=== PATIENT | female | born 1960 | race Caucasian/White ===

== ENCOUNTER → 2017-05-04 | Outpatient (CLI) | payer BC | LOC: RAD 10:52 | DX: Z12.31 Encounter for screening mammogram for malignant neoplasm of breast (principal) ==

== ENCOUNTER → 2017-11-12 | Outpatient (CLI) | payer OTHER | LOC: CAT 14:46 | DX: Z13.6 Encounter for screening for cardiovascular disorders (principal) ==

== ENCOUNTER → 2018-07-01 | Outpatient (CLI) | payer BC, OTHER ==
[~2018-07-01] MED LIST: ACYCLOVIR 400400 MG PO; ASPIR 8181 MG PO; ATENOLOL 50MG T50 M1 PO; LIPITOR10 MG PO; SERTRALINE HCL100 MG PO; SYNTHROID50 MCG PO; WELLBUTRIN SR150 MG PO; XANAX 0.5 MG0.5 MG PO; ZOLPIDEM TARTRA10 MG PO
== END ==
LOC: ULTRA 09:53
DX: N19 Unspecified kidney failure (principal)

== ENCOUNTER → 2018-07-11 | Outpatient (CLI) | payer BC, OTHER | LOC: RAD 14:10 | DX: Z12.31 Encounter for screening mammogram for malignant neoplasm of breast (principal) ==

== ENCOUNTER → 2020-04-25 | Outpatient (CLI) | payer BC | LOC: LAB 13:34 | PROVIDERS: ATTEND Nurse Practitioner | DX: Z20.828 Contact with and (suspected) exposure to other viral communicable diseases (principal) ==

== ENCOUNTER → 2020-05-07 | Outpatient (CLI) | payer BC | LOC: RAD 08:55 | DX: Z12.31 Encounter for screening mammogram for malignant neoplasm of breast (principal) ==